=== PATIENT | female | born 1985 | race Caucasian/White ===

== ENCOUNTER → 2016-11-29 | Outpatient (CLI) | payer BC ==
--- NOTE | 2016-11-29 13:09 | REP ---
RIGHT HIP, TWO VIEWS: There is no evidence of an acute fracture, dislocation or intrinsic bone disease. There is minor subchondral sclerosis in the acetabulum. IMPRESSION: No fracture or dislocation. There is minor subchondral sclerosis in the acetabulum. Further evaluation may be made with MRI if clinically indicated. Signed by Edd Almaraz MD 11/29/2016 04:17 P
== END ==
LOC: M WUC 10:55
PROVIDERS: ATTEND Family Medicine
DX: M16.11 Unilateral primary osteoarthritis, right hip (principal)

== ENCOUNTER → 2016-12-27 | Outpatient (CLI) | payer BC ==
--- NOTE | 2016-12-27 12:06 | REP ---
LUMBOSACRAL SPINE: Five views of the lumbosacral spine are performed. There is no compression fracture or malalignment. There is normal lumbar lordosis. There is no spondylosis or spondylolisthesis. Disc spaces are well preserved. Posterior elements appear intact. There is mild curvature toward the right. IMPRESSION: Mild curvature toward the right without other significant abnormality. Signed by Edd Almaraz MD 12/27/2016 03:54 P
--- NOTE | 2016-12-27 12:42 | REP ---
Cervical spine seven views: There are no comparisons. Vertebral body heights, interspacing alignment are normal. The prevertebral soft tissues are normal. The facets are normally aligned. There is no listhesis on flexion or extension. There is no bony foraminal encroachment. The odontoid view is unremarkable. Impression: Negative plain film study of the cervical spine. Signed by Edd Beltran MD 12/27/2016 12:34 P
[2016-12-27 19:08] LABS: MEAN CORPUSCULAR HEMOGLOBIN 31.4 pg (27.0-33.0); MEAN CORPUSCULAR HGB CONC 32.1 g/dl (32.0-36.5); RED CELL DISTRIBUTION WIDTH 12.7 % (11.5-14.5); WHITE BLOOD COUNT 6.7 K/mm3 (4.0-10.0)
[2016-12-27 20:19] LABS: ALBUMIN 4.1 GM/DL (3.2-5.2); ALBUMIN/GLOBULIN RATIO 1.32 (1.00-1.93); ALKALINE PHOSPHATASE 78 U/L (45-117); ALT/SGPT 19 U/L (12-78); ANION GAP 5 MEQ/L (8-16); AST/SGOT 17 U/L (15-37); BILIRUBIN,TOTAL 0.4 MG/DL (0.2-1.0); BLOOD UREA NITROGEN 15 MG/DL (7-18); CALCIUM LEVEL 9.5 MG/DL (8.5-10.1); CARBON DIOXIDE LEVEL 28 MEQ/L (21-32); CHLORIDE LEVEL 108 MEQ/L (98-107); CREATININE FOR GFR 0.58 MG/DL (0.55-1.02); FERRITIN 44 NG/ML (8-252); GLOMERULAR FILTRATION RATE > 60.0 (>60); GLUCOSE, FASTING 110 MG/DL (70-105); PERCENT SATURATION 35.2 % (13.2-37.4); POTASSIUM SERUM 3.9 MEQ/L (3.5-5.1); SODIUM LEVEL 141 MEQ/L (136-145); TOTAL IRON BINDING CAPACITY 341 UG/DL (250-450); TOTAL PROTEIN 7.2 GM/DL (6.4-8.2)
[2016-12-27 20:24] LABS: VITAMIN B12 LEVEL 545 PG/ML (247-911)
== END ==
LOC: M WUC 11:02
PROVIDERS: ATTEND Family Medicine
DX: D64.9 Anemia, unspecified (principal); R53.83 Other fatigue; M53.87 Other specified dorsopathies, lumbosacral region

== ENCOUNTER 2017-04-10 07:28 | Emergency (ER) | payer OTHER, BC ==
[~2017-04-10] VITALS: Ht 172.7 cm; Wt 68.3 kg
[2017-04-10] MEDS ORDERED: DOXYCYCLINE HYCLATE 100 MG TAB PO ONE (07:45)
[2017-04-10] MEDS ORDERED: NS 1,000 ML IV ONE (07:45)
[2017-04-10] MEDS ORDERED: ONDANSETRON 4MG/2ML VIAL (J2405) IV ONE (07:45)
[2017-04-10] MEDS ORDERED: ONDA8TAB8 (07:46)
[2017-04-10] MEDS ORDERED: OXYC-517 (07:46)
[2017-04-10] MEDS ORDERED: PAXI30TA11 PO (07:46)
[2017-04-10] MEDS ORDERED: METH20TA29 (07:46)
[2017-04-10] MEDS ORDERED: PANT40TA2 (07:46)
[2017-04-10] MEDS ORDERED: DOXY100T (07:46)
[2017-04-10] MEDS ORDERED: LIDOCAINE W/EPINEPHRINE 1% 20ML VIAL As Ordered ONE (07:58)
[2017-04-10 08:00] LABS: BASO # 0.1 K/mm3 (0.0-0.2); EOS # 0.2 K/mm3 (0.0-0.50); EOS % 1.9 % (0.0-3.0); LARGE UNSTAINED CELL # 0.1 K/mm3 (0.0-0.4); LARGE UNSTAINED CELL % 1.7 % (0.0-4.0); LYMPH # 2.8 K/mm3 (1.5-4.5); LYMPH % 32.9 % (24.0-44.0); MEAN CORPUSCULAR HEMOGLOBIN 30.7 pg (27.0-33.0); MEAN CORPUSCULAR VOLUME 95.9 fl (80.0-96.0); MONO # 0.4 K/mm3 (0.0-0.8); MONO % 4.5 % (0.0-5.0); NEUTROPHILS # 4.8 K/mm3 (1.8-7.7); PLATELET COUNT, AUTOMATED 442 k/mm3 (150-450); RED CELL DISTRIBUTION WIDTH 14.7 % (11.5-14.5); WHITE BLOOD COUNT 8.2 K/mm3 (4.0-10.0)
[2017-04-10] MEDS: MORPHINE 2 MG/ML 1ML SYRINGE IV PRN ×3 (08:00→09:13)
[2017-04-10 08:24] LABS: ANION GAP 6 MEQ/L (8-16); BLOOD UREA NITROGEN 10 MG/DL (7-18); CALCIUM LEVEL 9.1 MG/DL (8.5-10.1); CARBON DIOXIDE LEVEL 29 MEQ/L (21-32); CHLORIDE LEVEL 106 MEQ/L (98-107); CREATININE FOR GFR 0.56 MG/DL (0.55-1.02); GLOMERULAR FILTRATION RATE > 60.0 (>60); GLUCOSE, FASTING 90 MG/DL (70-105); POTASSIUM SERUM 3.9 MEQ/L (3.5-5.1); SODIUM LEVEL 141 MEQ/L (136-145)
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
[2017-04-10] MEDS ORDERED: LIDOCAINE 1% MDV 20ML VIAL As Ordered ONE (09:09)
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
[2017-04-10] MEDS ORDERED: LIDOCAINE 1% MDV 20ML VIAL SC ONE (10:15)
[2017-04-10] MEDS ORDERED: LIDOCAINE W/EPINEPHRINE 1% 20ML VIAL SC ONE (10:15)
[2017-04-10 10:28] VITALS: BP 126/85
[2017-04-10] MEDS ORDERED: NORCOTAB PO (10:34)
[2017-04-10] MEDS ORDERED: PERCOCET 5MG/325MG TAB PO ONE (10:45)
--- NOTE | 2017-04-10 10:54 | REP ---
AP AND LATERAL RIGHT WRIST, TWO VIEWS: HISTORY: Postreduction. COMPARISON: 0:27 a.m. 04/10/2017 A plaster cast is present obscuring the bone detail. There is a comminuted intraarticular fracture of the distal radius. There is no dislocation. IMPRESSION: Fracture of the distal radius. There is anatomic alignment. Signed by Edi Oakes MD 04/10/2017 11:06 A
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
== END 2017-04-10 10:46 | disposition home or self-care (01) ==
LOC: EDBD 07:28 → M ED 07:28
DX: S52.571A Other intraarticular fracture of lower end of right radius, initial encounter for closed fracture (principal); S01.111A Laceration without foreign body of right eyelid and periocular area, initial encounter; V47.5XXA Car driver injured in collision with fixed or stationary object in traffic accident, initial encounter; Y92.410 Unspecified street and highway as the place of occurrence of the external cause; Y93.9 Activity, unspecified; Y99.8 Other external cause status; F41.9 Anxiety disorder, unspecified; F32.9 Major depressive disorder, single episode, unspecified; Z98.84 Bariatric surgery status; Z79.899 Other long term (current) drug therapy
CPT/HCPCS: 12011; 70450; 73090; 73100; 73110; 73130; 80048; 85025; 93041; 94760; 96361; 96374; 96375; 99285; J2405

== ENCOUNTER → 2017-10-25 | Outpatient (REF) | payer BC ==
[2017-10-25 09:55] LABS: HEMATOCRIT 32.6 % (36.0-47.0); HEMOGLOBIN 10.7 g/dl (12.0-16.0); MEAN CORPUSCULAR HGB CONC 32.8 g/dl (32.0-36.5); MEAN CORPUSCULAR VOLUME 94.5 fl (80.0-96.0); PLATELET COUNT, AUTOMATED 249 10^3/uL (150-450); RED BLOOD COUNT 3.45 10^6/uL (4.00-5.40); RED CELL DISTRIBUTION WIDTH 13.9 % (11.5-14.5); WHITE BLOOD COUNT 6.5 10^3/uL (4.0-10.0)
[2017-10-25 10:27] LABS: ALBUMIN 3.7 GM/DL (3.2-5.2); ALBUMIN/GLOBULIN RATIO 1.28 (1.00-1.93); ALKALINE PHOSPHATASE 87 U/L (45-117); ALT/SGPT 20 U/L (12-78); ANION GAP 7 MEQ/L (8-16); AST/SGOT 17 U/L (7-37); BILIRUBIN,TOTAL 0.1 MG/DL (0.2-1.0); BLOOD UREA NITROGEN 12 MG/DL (7-18); CALCIUM LEVEL 8.2 MG/DL (8.5-10.1); CARBON DIOXIDE LEVEL 27 MEQ/L (21-32); CHLORIDE LEVEL 108 MEQ/L (98-107); CHOLESTEROL LEVEL 135 MG/DL (<200); CHOLESTEROL RISK RATIO 4.218 (<5); CREATININE FOR GFR 0.51 MG/DL (0.55-1.30); GLOMERULAR FILTRATION RATE > 60.0 (>60); GLUCOSE, FASTING 77 MG/DL (70-100); HDL CHOLESTEROL 32 MG/DL (>40); IRON (FE) 38 UG/DL (50-170); LDL CHOLESTEROL 85.6 MG/DL (<100); NON-HDL-C 103 MG/DL; PERCENT SATURATION 12.3 % (13.2-45.0); POTASSIUM SERUM 3.7 MEQ/L (3.5-5.1); RHEUMATOID FACTOR QUANT < 10.0 IU/ML (0-15.0); SODIUM LEVEL 142 MEQ/L (136-145); THYROID STIMULATING HORMONE 0.955 uIU/ML (0.358-3.740); THYROXINE (T4) 8.2 UG/DL (4.5-12.0); TOTAL IRON BINDING CAPACITY 308 UG/DL (250-450); TOTAL PROTEIN 6.6 GM/DL (6.4-8.2); TRIGLYCERIDES LEVEL 87 MG/DL (<150)
[2017-10-25 10:39] LABS: TOTAL 25(OH) VITAMIN D 12.1 NG/ML (30.0-100.0)
[2017-10-25 10:40] LABS: TOTAL T3 112.3 NG/DL (60.0-181.0)
[2017-10-28 00:06] LABS: Lyme Disease IgG Ab 18 kDa Ban Present (.); Lyme Disease IgG Ab 23 kDa Ban Absent (.); Lyme Disease IgG Ab 28 kDa Ban Absent (.); Lyme Disease IgG Ab 30 kDa Ban Present (.); Lyme Disease IgG Ab 39 kDa Ban Present (.); Lyme Disease IgG Ab 41 kDa Ban Absent (.); Lyme Disease IgG Ab 45 kDa Ban Present (.); Lyme Disease IgG Ab 58 kDa Ban Present (.); Lyme Disease IgG Ab 66 kDa Ban Absent (.); Lyme Disease IgG Ab 93 kDa Ban Present (.); Lyme Disease IgG West Blot Int Positive (.); Lyme Disease IgG/IgM Antibodie 1.68 ISR (0.00-0.90); Lyme Disease IgM Ab 23 kDa Ban Present (.); Lyme Disease IgM Ab 39 kDa Ban Absent (.); Lyme Disease IgM Ab 41 kDa Ban Absent (.); Lyme Disease IgM Ab Quantitati 1.44 index (0.00-0.79); Lyme Disease IgM West Blot Int Negative (.)
== END ==
LOC: M LAB REF 09:37
DX: D64.9 Anemia, unspecified (principal); R53.83 Other fatigue; M10.9 Gout, unspecified

== ENCOUNTER → 2017-11-16 | Outpatient (REF) | payer BC ==
[2017-11-16 13:44] LABS: INFLUENZA A AMPLIFICATION NEGATIVE (NEGATIVE); INFLUENZA B AMPLIFICATION NEGATIVE (NEGATIVE)
== END ==
LOC: M LAB REF 12:57
DX: J11.1 Influenza due to unidentified influenza virus with other respiratory manifestations (principal)
CPT/HCPCS: 87502

== ENCOUNTER → 2018-04-05 | Outpatient (CLI) | payer BC | LOC: M WUC 11:45 | DX: S20.219A Contusion of unspecified front wall of thorax, initial encounter (principal); X58.XXXA Exposure to other specified factors, initial encounter; Y92.89 Other specified places as the place of occurrence of the external cause; Y93.9 Activity, unspecified; Y99.9 Unspecified external cause status | CPT/HCPCS: 71046 ==

== ENCOUNTER → 2018-12-16 | Outpatient (CLI) | payer BC ==
[~2018-12-16] MED LIST: DOXY100T; METH20TA29; NORCOTAB PO; ONDA8TAB8; OXYC-517; PANT40TA3; PAXI30TA11 PO
--- NOTE | 2018-12-17 08:58 | REP ---
RIGHT RIB SERIES: Four views of the right ribs are performed. A slightly displaced fracture is noted of the anterolateral right 6th rib. No other fracture or bone lesion is seen. An accompanying view of the chest demonstrates discoid atelectasis in the left lung base with mild elevation of the left hemidiaphragm. Heart and mediastinum are unremarkable. IMPRESSION: Mildly displaced fracture right 6th rib anterolaterally. Electronically Signed by Edd Almaraz MD 12/17/2018 10:35 A
== END ==
LOC: M WUC 12:04
PROVIDERS: ATTEND Physician Assistant
DX: S22.31XA Fracture of one rib, right side, initial encounter for closed fracture (principal); Y92.89 Other specified places as the place of occurrence of the external cause; Y93.89 Activity, other specified; X58.XXXA Exposure to other specified factors, initial encounter; Y99.8 Other external cause status

== ENCOUNTER → 2019-04-02 | Outpatient (CLI) | payer BC ==
[~2019-04-02] MED LIST changes: +HYDR-3715 PO; -NORCOTAB PO
[2019-04-02 17:45] LABS: BASO # 0.1 10^3/uL (0.0-0.2); BASO % 0.5 % (0.0-1.0); EOS # 0.1 10^3/uL (0.0-0.50); EOS % 0.7 % (0.0-3.0); HEMATOCRIT 33.6 % (36.0-47.0); HEMOGLOBIN 11.1 g/dl (12.0-15.5); LYMPH # 3.2 10^3/uL (1.5-4.5); LYMPH % 29.4 % (24.0-44.0); MEAN CORPUSCULAR HEMOGLOBIN 30.5 pg (27.0-33.0); MEAN CORPUSCULAR VOLUME 92.3 fl (80.0-96.0); MONO # 0.9 10^3/uL (0.0-0.8); MONO % 7.8 % (0.0-5.0); NEUTROPHILS # 6.7 10^3/uL (1.8-7.7); NEUTROPHILS % 61.4 % (36.0-66.0); PLATELET COUNT, AUTOMATED 274 10^3/uL (150-450); RED BLOOD COUNT 3.64 10^6/uL (4.00-5.40); WHITE BLOOD COUNT 10.8 10^3/uL (4.0-10.0)
[2019-04-02 18:48] LABS: APPEARANCE, URINE HAZY (CLEAR); BACTERIA, URINE AUTO NEGATIVE (NEGATIVE); BILIRUBIN, URINE AUTO NEGATIVE (NEGATIVE); BLOOD, URINE BLOOD NEGATIVE (NEGATIVE); CALCIUM OXALATE CRYSTALS SMALL; COLOR, URINE YELLOW (YELLOW); GLUCOSE, URINE (UA) AUTO NEGATIVE (NEGATIVE); KETONE, URINE AUTO TRACE mg/dL (NEGATIVE); LEUKOCYTE ESTERASE, URINE AUTO TRACE (NEGATIVE); MUCUS, URINE SMALL (NEGATIVE); NITRITE, URINE AUTO NEGATIVE (NEGATIVE); PROTEIN, URINE AUTO NEGATIVE (NEGATIVE); RBC, URINE AUTO 3 /HPF (0-3); SPECIFIC GRAVITY URINE AUTO 1.034 (1.002-1.035); SQUAMOUS EPITHELIAL CELL UR AU 1 /HPF (0-6); UROBILINOGEN, URINE AUTO 0.2 mg/dL (0.0-2.0); WBC, URINE AUTO 6 /HPF (0-3)
[2019-04-04 08:58] LABS: HEPATITIS B SURFACE ANTIGEN NEGATIVE (NEGATIVE); HIV 1&2 SCREEN CENTAUR NEGATIVE (NEGATIVE); RUBELLA IgG QUALITATIVE IMMUNE (IMMUNE)
== END ==
LOC: M WUC 15:06
PROVIDERS: ATTEND Nurse Practitioner Adult Health
DX: Z34.81 Encounter for supervision of other normal pregnancy, first trimester (principal); Z3A.00 Weeks of gestation of pregnancy not specified

== ENCOUNTER → 2019-06-07 | Outpatient (CLI) | payer BC | LOC: M LAB 12:15 | PROVIDERS: ATTEND Midwife | DX: Z34.82 Encounter for supervision of other normal pregnancy, second trimester (principal) ==

== ENCOUNTER → 2019-08-01 | Outpatient (CLI) | payer BC | LOC: M WUC 08:00 | PROVIDERS: ATTEND Midwife | DX: Z34.82 Encounter for supervision of other normal pregnancy, second trimester (principal) ==

== ENCOUNTER 2025-04-01 19:33 | Emergency (ER) | payer OTHER ==
[~2025-04-01] VITALS: Ht 172.7 cm; Wt 86.4 kg
[~2025-04-01 19:33] MED LIST changes: +ONDA-284; -ONDA8TAB8; +PANT40TA29; -PANT40TA3; -PAXI30TA11 PO; +PAXI30TA12 PO
[2025-04-01 21:54] LABS: BASO # 0.0 10^3/uL (0.0-0.2); BASO % 0.2 % (0.0-1.0); EOS # 0.0 10^3/uL (0.0-0.5); EOS % 0.2 % (0.0-3.0); LYMPH # 1.5 10^3/uL (1.5-5.0); LYMPH % 13.1 % (24.0-44.0); MONO # 1.6 10^3/uL (0.0-0.8); MONO % 14.4 % (2.0-8.0); NEUTROPHILS # 7.8 10^3/uL (1.5-8.5); NEUTROPHILS % 70.6 % (36.0-66.0); PLATELET COUNT, AUTOMATED 243 10^3/uL (150-450)
[2025-04-01 22:28] LABS: C REACTIVE PROTEIN QUANTITATIV 4.33 MG/DL (<1.0)
[2025-04-01 22:36] LABS: ALT/SGPT 89 U/L (7.0-40); AST/SGOT 252 U/L (<34); CALCIUM LEVEL 9.5 MG/DL (8.5-10.1); CARBON DIOXIDE LEVEL 22 MMOL/L (20-31); CHLORIDE LEVEL 104 MMOL/L (98-107); CREATININE FOR GFR 0.48 MG/DL (0.55-1.30); GLOMERULAR FILTRATION RATE > 90.0 (>58); POTASSIUM SERUM 3.8 MMOL/L (3.5-5.1); SODIUM LEVEL 142 MMOL/L (136-145)
[2025-04-02 00:19] LABS: ETHYL ALCOHOL (ETHANOL) < 0.003 % (0.000-0.010)
[2025-04-02] MEDS ORDERED: ISOVUE-370 76% 100 ML VIAL As Ordered ONE (01:05)
[2025-04-02] MEDS: ONDANSETRON 4MG 2ML VIAL IV ONE (01:09)
[2025-04-02] MEDS: MORPHINE 4 MG/ML 1 ML VIAL IV PRN (01:10)
[2025-04-02 01:43] LABS: INR 1.69
[2025-04-02] MEDS: OXYMETAZOLINE 0.05% NASAL SPRAY ONE (03:28)
[2025-04-02] MEDS: FUROSEMIDE 40 MG/4 ML VIAL IV ONE (03:28)
[2025-04-02] MEDS: DOCUSATE SODIUM 100 MG CAPSULE PO SCH (09:00)
[2025-04-02] MEDS ORDERED: MAALOX 30 ML SUSP *UDC PO PRN (10:40)
[2025-04-02] MEDS ORDERED: MOM 30 ML SUSPENSION UDC PO PRN (10:40)
[2025-04-02] MEDS: MORPHINE 2 MG/ML 1 ML VIAL IV PRN (10:55)
[2025-04-02] MEDS: FOLIC ACID 1 MG TAB PO SCH (11:15)
[2025-04-02] MEDS: MULTIVITAMINS/MINERALS THERAP 1 TAB PO SCH (11:15)
[2025-04-02] MEDS: THIAMINE 100 MG TAB PO SCH (11:15)
[2025-04-02] MEDS ORDERED: PANT-23 PO (12:34)
[2025-04-02] MEDS ORDERED: PRED15SO24 PO (12:34)
[2025-04-02] MEDS ORDERED: HOME MED LIST COMPLETE! XX SCH (12:35)
[2025-04-02] MEDS: PANTOPRAZOLE 40MG VIAL IV SCH (12:38)
[2025-04-02] MEDS: cefTRIAXone SOD 2 GM in DEXTROSE 5% (D5W) ADV/MINI-BAG 50 ML IV SCH (12:38)
[2025-04-02] MEDS: ENOXAPARIN 40 MG/0.4 ML SYRINGE (J1650 PER 10MG) SC SCH (13:00)
[2025-04-02 14:00] VITALS: BP 108/62
[2025-04-02] MEDS: FUROSEMIDE 20 MG/2 ML VIAL IV ONE (14:00)
[2025-04-02 14:21] VITALS: BP 111/59; TEMP 98.4; O2SAT 96
[2025-04-02] MEDS ORDERED: FUROSEMIDE 40 MG/4 ML VIAL IV SCH (17:00)
[2025-04-03 11:25] LABS: T P ELECTROPHORESIS SO 6.5 g/dL (6.1-8.1)
[2025-04-05 09:19] LABS: ALBUMIN SPEP 2.4 g/dL (3.8-4.8); ALPHA-1-GLOBULINS SO 0.4 g/dL (0.2-0.3); ALPHA-2-GLOBULINS SO 0.6 g/dL (0.5-0.9); BETA 2 GLOBULIN 0.7 g/dL (0.2-0.5); BETA-GLOBULIN SO 0.2 g/dL (0.4-0.6); GAMMA GLOBULINS SO 2.1 g/dL (0.8-1.7)
== END 2025-04-02 14:28 | disposition left against medical advice (07) ==
LOC: M ED 19:33
DX: K70.10 Alcoholic hepatitis without ascites (principal); K21.9 Gastro-esophageal reflux disease without esophagitis; F17.210 Nicotine dependence, cigarettes, uncomplicated; F10.10 Alcohol abuse, uncomplicated; Z79.52 Long term (current) use of systemic steroids; Z79.899 Other long term (current) drug therapy; Z53.9 Procedure and treatment not carried out, unspecified reason
CPT/HCPCS: 71045; 74177; 80048; 80076; 82077; 82140; 83605; 83690; 84145; 84155; 84165; 85025; 85610; 85730; 86140; 87040; 96365; 96372; 96375; 96376; 99284; J0696; J1650; J1938; J2405; J2470; Q9967

== ENCOUNTER 2025-04-09 16:08 | Emergency (ER) | payer OTHER ==
[~2025-04-09] VITALS: Ht 172.7 cm; Wt 90.3 kg
[~2025-04-09 16:08] MED LIST changes: +PANT-23 PO; +PRED15SO24 PO
[2025-04-09 17:40] LABS: BASO # 0.1 10^3/uL (0.0-0.2); BASO % 0.3 % (0.0-1.0); EOS # 0.1 10^3/uL (0.0-0.5); EOS % 0.4 % (0.0-3.0); LYMPH # 1.7 10^3/uL (1.5-5.0); LYMPH % 8.0 % (24.0-44.0); MONO # 1.5 10^3/uL (0.0-0.8); MONO % 7.1 % (2.0-8.0); NEUTROPHILS # 17.4 10^3/uL (1.5-8.5); NEUTROPHILS % 83.0 % (36.0-66.0); PLATELET COUNT, AUTOMATED 271 10^3/uL (150-450)
[2025-04-09] MEDS ORDERED: THERTAB52 PO (18:03)
[2025-04-09 18:04] LABS: ALT/SGPT 58.0 U/L (7.0-40); AST/SGOT 173.0 U/L (<34); CALCIUM LEVEL 8.8 MG/DL (8.5-10.1); CARBON DIOXIDE LEVEL 22.0 MMOL/L (20-31); CHLORIDE LEVEL 95.0 MMOL/L (98-107); CREATININE FOR GFR 1.82 MG/DL (0.55-1.30); GLOMERULAR FILTRATION RATE 35.4 (>58); POTASSIUM SERUM 2.9 MMOL/L (3.5-5.1); SODIUM LEVEL 131.0 MMOL/L (136-145)
[2025-04-09] MEDS ORDERED: HOME MED LIST COMPLETE! XX SCH (18:05)
[2025-04-09 18:06] LABS: INR 2.04
[2025-04-09] MEDS: NS (Normal Saline) 0.9% 1,000 ML IV SCH (18:17)
[2025-04-09] MEDS: KCL 10MEQ/100ML SWI (KRUN) 10 MEQ in IV 1 EA IV ONE (18:17)
[2025-04-09] MEDS: cefTRIAXone SOD 1 GM in DEXTROSE 5% (D5W) ADV/MINI-BAG 50 ML IV ONE (18:27)
[2025-04-09] MEDS: POTASSIUM CHLORIDE 10MEQ SR TABLET PO ONE (21:49)
[2025-04-09] MEDS: PANTOPRAZOLE 40MG VIAL IV ONE (23:55)
[2025-04-09] MEDS: PHYTONADIONE 5 MG TAB PO ONE (23:56)
[2025-04-10] VITALS (8 sets, daily range): BP systolic 94–163; BP diastolic 53–70; TEMP 97.7–98.6; O2SAT 93–97
[2025-04-10 07:25] LABS: BASO # 0.1 10^3/uL (0.0-0.2); BASO % 0.4 % (0.0-1.0); EOS # 0.1 10^3/uL (0.0-0.5); EOS % 0.3 % (0.0-3.0); LYMPH # 1.3 10^3/uL (1.5-5.0); LYMPH % 7.4 % (24.0-44.0); MONO # 1.1 10^3/uL (0.0-0.8); MONO % 6.6 % (2.0-8.0); NEUTROPHILS # 14.4 10^3/uL (1.5-8.5); NEUTROPHILS % 84.4 % (36.0-66.0); PLATELET COUNT, AUTOMATED 248 10^3/uL (150-450)
[2025-04-10 07:59] LABS: CALCIUM LEVEL 8.5 MG/DL (8.5-10.1); CARBON DIOXIDE LEVEL 22.0 MMOL/L (20-31); CHLORIDE LEVEL 99.0 MMOL/L (98-107); CREATININE FOR GFR 1.84 MG/DL (0.55-1.30); GLOMERULAR FILTRATION RATE 34.9 (>58); POTASSIUM SERUM 3.5 MMOL/L (3.5-5.1); SODIUM LEVEL 134.0 MMOL/L (136-145)
[2025-04-10 08:03] LABS: ALT/SGPT 51.0 U/L (7.0-40); AST/SGOT 161.0 U/L (<34); CALCIUM LEVEL 8.7 MG/DL (8.5-10.1); CARBON DIOXIDE LEVEL 22.0 MMOL/L (20-31); CHLORIDE LEVEL 99.0 MMOL/L (98-107); CREATININE FOR GFR 1.86 MG/DL (0.55-1.30); GLOMERULAR FILTRATION RATE 34.5 (>58); POTASSIUM SERUM 3.5 MMOL/L (3.5-5.1); SODIUM LEVEL 134.0 MMOL/L (136-145)
[2025-04-10] MEDS: PANTOPRAZOLE 40MG VIAL IV SCH (08:13)
[2025-04-10] MEDS ORDERED: OCTREOTIDE ACETATE 100 MCG/ML VIAL **SC ADMINISTRATION ONLY SC SCH ×2 (12:10→14:00)
[2025-04-10] MEDS ORDERED: HYDROMORPHONE HCL 0.5 MG/0.5 ML SYRINGE IV PRN (12:50)
[2025-04-10] MEDS: ONDANSETRON 4MG 2ML VIAL IV PRN (13:05)
[2025-04-10] MEDS: HYDROMORPHONE HCL 0.5 MG/0.5 ML SYRINGE IV PRN (13:05)
[2025-04-10] MEDS: DOXYCYCLINE HYCLATE 100 MG TABLET PO SCH (13:12)
[2025-04-10] MEDS: MIDODRINE 5 MG TAB PO SCH (13:12)
[2025-04-10] MEDS ORDERED: cefTRIAXone SOD 1 GM in DEXTROSE 5% (D5W) ADV/MINI-BAG 50 ML IV SCH (18:00)
== END 2025-04-10 13:17 | disposition short-term general hospital (02) ==
LOC: M ED 16:08
DX: K72.90 Hepatic failure, unspecified without coma (principal); K70.10 Alcoholic hepatitis without ascites; F41.9 Anxiety disorder, unspecified; F32.A Depression, unspecified; F17.210 Nicotine dependence, cigarettes, uncomplicated; Z79.899 Other long term (current) drug therapy; Z79.810 Long term (current) use of selective estrogen receptor modulators (SERMs)
CPT/HCPCS: 36415; 36430; 74176; 80048; 80053; 80076; 83690; 85025; 85610; 85730; 86850; 86900; 86901; 87040; 93005; 93041; 96365; 96366; 96375; 99285; J0696; J1171; J2405; J2470; J3010; P9047

== ENCOUNTER → 2025-05-13 | Outpatient (CLI) | payer OTHER ==
[~2025-05-13] MED LIST changes: +THERTAB52 PO
[2025-05-13 12:23] LABS: BASO # 0.1 10^3/uL (0.0-0.2); BASO % 1.0 % (0.0-1.0); EOS # 0.3 10^3/uL (0.0-0.5); EOS % 2.3 % (0.0-3.0); LYMPH # 2.8 10^3/uL (1.5-5.0); LYMPH % 24.7 % (24.0-44.0); MONO # 0.7 10^3/uL (0.0-0.8); MONO % 5.9 % (2.0-8.0); NEUTROPHILS # 7.4 10^3/uL (1.5-8.5); NEUTROPHILS % 65.7 % (36.0-66.0); PLATELET COUNT, AUTOMATED 433 10^3/uL (150-450)
[2025-05-13 12:26] LABS: ALT/SGPT 14.0 U/L (7.0-40); AST/SGOT 13.0 U/L (<34); CALCIUM LEVEL 9.2 MG/DL (8.5-10.1); CARBON DIOXIDE LEVEL 24.0 MMOL/L (20-31); CHLORIDE LEVEL 110.0 MMOL/L (98-107); CREATININE FOR GFR 1.55 MG/DL (0.55-1.30); GLOMERULAR FILTRATION RATE 42.9 (>58); MAGNESIUM LEVEL 1.3 MG/DL (1.8-2.4); POTASSIUM SERUM 3.8 MMOL/L (3.5-5.1); SODIUM LEVEL 146.0 MMOL/L (136-145)
== END ==
LOC: M WUC 08:20
PROVIDERS: ATTEND Nurse Practitioner Adult Health
DX: Z01.82 Encounter for allergy testing (principal); K74.60 Unspecified cirrhosis of liver; Z94.4 Liver transplant status; R79.89 Other specified abnormal findings of blood chemistry; B18.1 Chronic viral hepatitis B without delta-agent; B18.2 Chronic viral hepatitis C

== ENCOUNTER → 2025-05-20 | Outpatient (CLI) | payer OTHER ==
[~2025-05-20] MED LIST changes: +ACYC1CAP20 PO; +B-12100021 PO; +BACT800T5 PO; +CELL500T PO; +COLA100C5 PO; +FOLI1TAB11 PO; +LASI40TA9 PO; +MAGN400C2 PO; +NOXI1TAB PO; +NYST-38 PO; +PRED10TA2 PO; +PROT1TAB2 PO; +PROZ20CA12 PO; +TACR5CAP4 PO; +THIA100TA PO; +URSO300C3 PO
[2025-05-20 12:09] LABS: BASO # 0.1 10^3/uL (0.0-0.2); BASO % 0.6 % (0.0-1.0); EOS # 0.2 10^3/uL (0.0-0.5); EOS % 1.7 % (0.0-3.0); LYMPH # 1.5 10^3/uL (1.5-5.0); LYMPH % 11.4 % (24.0-44.0); MONO # 0.6 10^3/uL (0.0-0.8); MONO % 4.4 % (2.0-8.0); NEUTROPHILS # 10.4 10^3/uL (1.5-8.5); NEUTROPHILS % 81.0 % (36.0-66.0); PLATELET COUNT, AUTOMATED 480 10^3/uL (150-450)
[2025-05-20 12:58] LABS: ALT/SGPT 17.0 U/L (7.0-40); AST/SGOT 18.0 U/L (<34); CALCIUM LEVEL 9.9 MG/DL (8.5-10.1); CARBON DIOXIDE LEVEL 23.0 MMOL/L (20-31); CHLORIDE LEVEL 109.0 MMOL/L (98-107); CREATININE FOR GFR 1.46 MG/DL (0.55-1.30); GLOMERULAR FILTRATION RATE 46.1 (>58); MAGNESIUM LEVEL 1.3 MG/DL (1.8-2.4); POTASSIUM SERUM 4.7 MMOL/L (3.5-5.1); SODIUM LEVEL 143.0 MMOL/L (136-145)
[2025-05-23 16:13] LABS: FK 506 (TACROLIMUS) 3.9 mcg/L (5.0-20.0)
[2025-05-24 11:17] LABS: PHOSPHATIDYLETHANOL NEGATIVE ng/mL (<20); PLPETOH NEGATIVE ng/mL (<20)
== END ==
LOC: M WUC 08:20
PROVIDERS: ATTEND Nurse Practitioner Adult Health
DX: Z01.82 Encounter for allergy testing (principal); K74.60 Unspecified cirrhosis of liver; Z94.4 Liver transplant status

== ENCOUNTER 2025-05-24 12:13 | Emergency (ER) | payer OTHER ==
[~2025-05-24] VITALS: Ht 172.7 cm; Wt 70.8 kg
[~2025-05-24 12:13] MED LIST changes: -ACYC1CAP20 PO; -B-12100021 PO; -BACT800T5 PO; -CELL500T PO; -COLA100C5 PO; -FOLI1TAB11 PO; -LASI40TA9 PO; -MAGN400C2 PO; -NOXI1TAB PO; -NYST-38 PO; -PRED10TA2 PO; -PROT1TAB2 PO; -PROZ20CA12 PO; -TACR5CAP4 PO; -THIA100TA PO; -URSO300C3 PO
[2025-05-24] MEDS ORDERED: NYST-38 PO (12:29)
[2025-05-24] MEDS ORDERED: PROZ20CA12 PO (12:29)
[2025-05-24] MEDS ORDERED: BACT800T5 PO (12:29)
[2025-05-24] MEDS ORDERED: NOXI1TAB PO (12:29)
[2025-05-24] MEDS ORDERED: CELL500T PO (12:29)
[2025-05-24] MEDS ORDERED: MAGN400C2 PO (12:29)
[2025-05-24] MEDS ORDERED: ACYC1CAP20 PO (12:29)
[2025-05-24] MEDS ORDERED: B-12100021 PO (12:29)
[2025-05-24] MEDS ORDERED: PRED10TA2 PO (12:29)
[2025-05-24] MEDS ORDERED: FOLI1TAB11 PO (12:29)
[2025-05-24] MEDS ORDERED: TACR5CAP4 PO (12:29)
[2025-05-24] MEDS ORDERED: LASI40TA9 PO (12:29)
[2025-05-24] MEDS ORDERED: THIA100TA PO (12:29)
[2025-05-24] MEDS ORDERED: URSO300C3 PO (12:29)
[2025-05-24] MEDS ORDERED: PROT1TAB2 PO (12:29)
[2025-05-24] MEDS ORDERED: COLA100C5 PO (12:29)
[2025-05-24 13:05] LABS: BASO # 0.1 10^3/uL (0.0-0.2); BASO % 0.6 % (0.0-1.0); EOS # 0.0 10^3/uL (0.0-0.5); EOS % 0.2 % (0.0-3.0); LYMPH # 1.0 10^3/uL (1.5-5.0); LYMPH % 10.0 % (24.0-44.0); MONO # 0.3 10^3/uL (0.0-0.8); MONO % 2.4 % (2.0-8.0); NEUTROPHILS # 8.9 10^3/uL (1.5-8.5); NEUTROPHILS % 85.9 % (36.0-66.0); PLATELET COUNT, AUTOMATED 397 10^3/uL (150-450)
[2025-05-24 13:34] LABS: ALT/SGPT 15.0 U/L (7.0-40); AST/SGOT 17.0 U/L (<34); CALCIUM LEVEL 9.4 MG/DL (8.5-10.1); CARBON DIOXIDE LEVEL 21.0 MMOL/L (20-31); CHLORIDE LEVEL 106.0 MMOL/L (98-107); CREATININE FOR GFR 1.45 MG/DL (0.55-1.30); GLOMERULAR FILTRATION RATE 46.5 (>58); POTASSIUM SERUM 4.7 MMOL/L (3.5-5.1); SODIUM LEVEL 139.0 MMOL/L (136-145)
[2025-05-24] MEDS: ONDANSETRON 4MG 2ML VIAL IV ONE (14:15)
[2025-05-24] MEDS: MORPHINE 4 MG/ML 1 ML VIAL IV PRN (14:34)
[2025-05-24] MEDS ORDERED: ISOVUE-370 76% 100 ML VIAL As Ordered ONE (14:40)
[2025-05-24 16:33] LABS: INR 0.85
[2025-05-24 17:15] VITALS: TEMP 97.6
[2025-05-24 17:30] VITALS: BP 145/98; O2SAT 100
== END 2025-05-24 17:47 | disposition home or self-care (01) ==
LOC: M ED 12:13
DX: R10.11 Right upper quadrant pain (principal); Z94.4 Liver transplant status; Z98.84 Bariatric surgery status; Z88.6 Allergy status to analgesic agent; Z90.49 Acquired absence of other specified parts of digestive tract; N83.202 Unspecified ovarian cyst, left side; K76.0 Fatty (change of) liver, not elsewhere classified; Z79.899 Other long term (current) drug therapy
CPT/HCPCS: 74177; 80048; 80076; 80197; 82150; 83690; 85025; 85610; 96374; 99284; Q9967

== ENCOUNTER → 2025-06-03 | Outpatient (CLI) | payer OTHER ==
[~2025-06-03] MED LIST changes: +ACYC1CAP20 PO; +B-12100021 PO; +BACT800T5 PO; +CELL500T PO; +COLA100C5 PO; +FOLI1TAB11 PO; +LASI40TA9 PO; +MAGN400C2 PO; +NOXI1TAB PO; +NYST-38 PO; +PRED10TA2 PO; +PROT1TAB2 PO; +PROZ20CA12 PO; +TACR5CAP4 PO; +THIA100TA PO; +URSO300C3 PO
[2025-06-03 12:59] LABS: BASO # 0.1 10^3/uL (0.0-0.2); BASO % 0.7 % (0.0-1.0); EOS # 0.1 10^3/uL (0.0-0.5); EOS % 0.7 % (0.0-3.0); LYMPH # 1.4 10^3/uL (1.5-5.0); LYMPH % 11.1 % (24.0-44.0); MONO # 0.5 10^3/uL (0.0-0.8); MONO % 4.2 % (2.0-8.0); NEUTROPHILS # 10.4 10^3/uL (1.5-8.5); NEUTROPHILS % 82.5 % (36.0-66.0); PLATELET COUNT, AUTOMATED 357 10^3/uL (150-450)
[2025-06-03 13:04] LABS: ALT/SGPT 15.0 U/L (7.0-40); AST/SGOT 22.0 U/L (<34); CALCIUM LEVEL 9.9 MG/DL (8.5-10.1); CARBON DIOXIDE LEVEL 22.0 MMOL/L (20-31); CHLORIDE LEVEL 106.0 MMOL/L (98-107); CREATININE FOR GFR 1.44 MG/DL (0.55-1.30); GLOMERULAR FILTRATION RATE 46.9 (>58); MAGNESIUM LEVEL 1.4 MG/DL (1.8-2.4); POTASSIUM SERUM 3.9 MMOL/L (3.5-5.1); SODIUM LEVEL 140.0 MMOL/L (136-145)
[2025-06-06 08:48] LABS: FK 506 (TACROLIMUS) 16.3 mcg/L (5.0-20.0)
[2025-06-07 22:13] LABS: PHOSPHATIDYLETHANOL NEGATIVE ng/mL (<20); PLPETOH NEGATIVE ng/mL (<20)
== END ==
LOC: M WUC 09:45
PROVIDERS: ATTEND Nurse Practitioner Adult Health
DX: Z18.12 Retained nonmagnetic metal fragments (principal)

== ENCOUNTER → 2025-06-21 | Outpatient (CLI) | payer OTHER | LOC: M WUC 08:37 | PROVIDERS: ATTEND Nurse Practitioner Adult Health | DX: Z94.4 Liver transplant status (principal) ==

== ENCOUNTER → 2025-07-02 | Outpatient (CLI) | payer OTHER ==
[2025-07-02 12:57] LABS: BASO # 0.1 10^3/uL (0.0-0.2); BASO % 0.5 % (0.0-1.0); EOS # 0.1 10^3/uL (0.0-0.5); EOS % 0.9 % (0.0-3.0); LYMPH # 1.8 10^3/uL (1.5-5.0); LYMPH % 17.8 % (24.0-44.0); MONO # 0.7 10^3/uL (0.0-0.8); MONO % 6.9 % (2.0-8.0); NEUTROPHILS # 7.4 10^3/uL (1.5-8.5); NEUTROPHILS % 73.5 % (36.0-66.0); PLATELET COUNT, AUTOMATED 308 10^3/uL (150-450)
[2025-07-02 15:14] LABS: ALT/SGPT 15.0 U/L (7.0-40); AST/SGOT 18.0 U/L (<34); CALCIUM LEVEL 9.7 MG/DL (8.5-10.1); CARBON DIOXIDE LEVEL 20.0 MMOL/L (20-31); CHLORIDE LEVEL 110.0 MMOL/L (98-107); CREATININE FOR GFR 1.29 MG/DL (0.55-1.30); GLOMERULAR FILTRATION RATE 53.1 (>58); MAGNESIUM LEVEL 1.5 MG/DL (1.8-2.4); POTASSIUM SERUM 4.3 MMOL/L (3.5-5.1); SODIUM LEVEL 139.0 MMOL/L (136-145)
[2025-07-04 12:02] LABS: FK 506 (TACROLIMUS) 5.7 mcg/L (5.0-20.0)
== END ==
LOC: M WUC 08:54
PROVIDERS: ATTEND Nurse Practitioner Adult Health
DX: Z01.82 Encounter for allergy testing (principal); Z94.4 Liver transplant status; B18.1 Chronic viral hepatitis B without delta-agent; B18.2 Chronic viral hepatitis C; R79.89 Other specified abnormal findings of blood chemistry

== ENCOUNTER 2025-07-18 16:00 | Emergency (ER) | payer OTHER ==
[~2025-07-18] VITALS: Ht 172.7 cm; Wt 74.8 kg
[2025-07-18 16:53] LABS: BASO # 0.0 10^3/uL (0.0-0.2); BASO % 0.5 % (0.0-1.0); EOS # 0.1 10^3/uL (0.0-0.5); EOS % 1.0 % (0.0-3.0); LYMPH # 1.2 10^3/uL (1.5-5.0); LYMPH % 15.6 % (24.0-44.0); MONO # 0.5 10^3/uL (0.0-0.8); MONO % 6.0 % (2.0-8.0); NEUTROPHILS # 5.9 10^3/uL (1.5-8.5); NEUTROPHILS % 76.8 % (36.0-66.0); PLATELET COUNT, AUTOMATED 316 10^3/uL (150-450)
[2025-07-18 17:22] LABS: ALT/SGPT 29.0 U/L (7.0-40); AST/SGOT 35.0 U/L (<34); CALCIUM LEVEL 10.4 MG/DL (8.5-10.1); CARBON DIOXIDE LEVEL 25.0 MMOL/L (20-31); CHLORIDE LEVEL 102.0 MMOL/L (98-107); CREATININE FOR GFR 2.28 MG/DL (0.55-1.30); GLOMERULAR FILTRATION RATE 26.8 (>58); POTASSIUM SERUM 4.0 MMOL/L (3.5-5.1); SODIUM LEVEL 136.0 MMOL/L (136-145)
[2025-07-18] MEDS ORDERED: NS (Normal Saline) 0.9% 1,000 ML IV SCH (18:00)
[2025-07-18] MEDS: MORPHINE 4 MG/ML 1 ML VIAL IV ONE ×2 (18:16→20:42)
[2025-07-18] MEDS: NS 500 ML IV ONE (18:17)
[2025-07-18 18:19] LABS: INR 0.9
[2025-07-18 18:30] VITALS: TEMP 97.2
[2025-07-18 18:37] LABS: CK-MB VALUE MASS 2.7 NG/ML (<3.6)
[2025-07-18 18:40] LABS: C REACTIVE PROTEIN QUANTITATIV 0.68 MG/DL (<1.0); CPK CREATINE PHOSPHOKINASE 100.0 U/L (34-145); MB/CK RELATIVE INDEX 2.7 (< OR =4)
[2025-07-18 18:48] LABS: ALT/SGPT 25.0 U/L (7.0-40); AST/SGOT 29.0 U/L (<34); CALCIUM LEVEL 10.2 MG/DL (8.5-10.1); CARBON DIOXIDE LEVEL 24.0 MMOL/L (20-31); CHLORIDE LEVEL 106.0 MMOL/L (98-107); CREATININE FOR GFR 2.33 MG/DL (0.55-1.30); GLOMERULAR FILTRATION RATE 26.1 (>58); POTASSIUM SERUM 4.0 MMOL/L (3.5-5.1); SODIUM LEVEL 137.0 MMOL/L (136-145)
[2025-07-18 19:45] VITALS: BP 142/96; O2SAT 100
[2025-07-18 20:08] LABS: CK-MB VALUE MASS 2.4 NG/ML (<3.6)
[2025-07-18 20:11] LABS: CPK CREATINE PHOSPHOKINASE 97.0 U/L (34-145); MB/CK RELATIVE INDEX 2.47 (< OR =4)
[2025-07-18] MEDS: TACROLIMUS 1MG CAP PO SCH (20:58)
[2025-07-20 07:45] LABS: ERYTHROCYTE SEDIMENTATION RATE 53 mm/hr (0-20)
== END 2025-07-18 22:41 | disposition left against medical advice (07) ==
LOC: M ED 16:00
DX: N17.9 Acute kidney failure, unspecified (principal); I45.10 Unspecified right bundle-branch block; F17.210 Nicotine dependence, cigarettes, uncomplicated; Z88.6 Allergy status to analgesic agent; Z79.2 Long term (current) use of antibiotics; Z79.52 Long term (current) use of systemic steroids; Z79.899 Other long term (current) drug therapy; Z79.810 Long term (current) use of selective estrogen receptor modulators (SERMs); Z53.9 Procedure and treatment not carried out, unspecified reason
CPT/HCPCS: 71045; 74176; 76775; 80048; 80076; 80197; 82150; 82550; 82553; 83605; 83690; 84145; 84484; 85025; 85610; 85652; 85730; 86140; 86850; 86900; 86901; 87040; 93005; 93041; 94760; 96361; 96374; 96375; 99285; J7507

== ENCOUNTER → 2025-08-12 | Outpatient (CLI) | payer OTHER ==
[2025-08-12 14:15] LABS: BASO # 0.1 10^3/uL (0.0-0.2); BASO % 0.6 % (0.0-1.0); EOS # 0.1 10^3/uL (0.0-0.5); EOS % 1.7 % (0.0-3.0); LYMPH # 1.5 10^3/uL (1.5-5.0); LYMPH % 19.5 % (24.0-44.0); MONO # 0.6 10^3/uL (0.0-0.8); MONO % 7.3 % (2.0-8.0); NEUTROPHILS # 5.5 10^3/uL (1.5-8.5); NEUTROPHILS % 70.5 % (36.0-66.0); PLATELET COUNT, AUTOMATED 218 10^3/uL (150-450)
[2025-08-12 14:23] LABS: ALT/SGPT 19.0 U/L (7.0-40); AST/SGOT 22.0 U/L (<34); CALCIUM LEVEL 10.0 MG/DL (8.5-10.1); CARBON DIOXIDE LEVEL 25.0 MMOL/L (20-31); CHLORIDE LEVEL 112.0 MMOL/L (98-107); CREATININE FOR GFR 1.76 MG/DL (0.55-1.30); GLOMERULAR FILTRATION RATE 36.6 (>58); MAGNESIUM LEVEL 1.6 MG/DL (1.8-2.4); POTASSIUM SERUM 4.7 MMOL/L (3.5-5.1); SODIUM LEVEL 141.0 MMOL/L (136-145)
[2025-08-14 12:37] LABS: FK 506 (TACROLIMUS) 10.0 mcg/L (5.0-20.0)
== END ==
LOC: M WUC 08:39
PROVIDERS: ATTEND Nurse Practitioner Adult Health
DX: Z01.82 Encounter for allergy testing (principal)

== ENCOUNTER → 2025-08-19 | Outpatient (CLI) | payer OTHER ==
[~2025-08-19] MED LIST changes: -PROZ20CA12 PO; +PROZ20CA25 PO
[2025-08-19 13:00] LABS: BASO # 0.0 10^3/uL (0.0-0.2); BASO % 0.5 % (0.0-1.0); EOS # 0.1 10^3/uL (0.0-0.5); EOS % 1.6 % (0.0-3.0); LYMPH # 1.6 10^3/uL (1.5-5.0); LYMPH % 20.3 % (24.0-44.0); MONO # 0.6 10^3/uL (0.0-0.8); MONO % 7.6 % (2.0-8.0); NEUTROPHILS # 5.5 10^3/uL (1.5-8.5); NEUTROPHILS % 69.7 % (36.0-66.0); PLATELET COUNT, AUTOMATED 247 10^3/uL (150-450)
[2025-08-19 13:26] LABS: ALT/SGPT 19.0 U/L (7.0-40); AST/SGOT 19.0 U/L (<34); CALCIUM LEVEL 10.0 MG/DL (8.5-10.1); CARBON DIOXIDE LEVEL 24.0 MMOL/L (20-31); CHLORIDE LEVEL 113.0 MMOL/L (98-107); CREATININE FOR GFR 1.85 MG/DL (0.55-1.30); GLOMERULAR FILTRATION RATE 34.5 (>58); MAGNESIUM LEVEL 2.0 MG/DL (1.8-2.4); POTASSIUM SERUM 4.5 MMOL/L (3.5-5.1); SODIUM LEVEL 144.0 MMOL/L (136-145)
== END ==
LOC: M WUC 08:35
PROVIDERS: ATTEND Nurse Practitioner Adult Health
DX: K74.60 Unspecified cirrhosis of liver (principal)

== ENCOUNTER → 2025-09-23 | Outpatient (CLI) | payer OTHER ==
[2025-09-23 12:25] LABS: BASO # 0.1 10^3/uL (0.0-0.2); BASO % 0.6 % (0.0-1.0); EOS # 0.1 10^3/uL (0.0-0.5); EOS % 0.6 % (0.0-3.0); LYMPH # 1.6 10^3/uL (1.5-5.0); LYMPH % 16.4 % (24.0-44.0); MONO # 0.5 10^3/uL (0.0-0.8); MONO % 5.3 % (2.0-8.0); NEUTROPHILS # 7.2 10^3/uL (1.5-8.5); NEUTROPHILS % 76.7 % (36.0-66.0); PLATELET COUNT, AUTOMATED 301 10^3/uL (150-450)
[2025-09-23 12:58] LABS: ALT/SGPT 24.0 U/L (7.0-40); AST/SGOT 27.0 U/L (<34); CALCIUM LEVEL 10.3 MG/DL (8.5-10.1); CARBON DIOXIDE LEVEL 22.0 MMOL/L (20-31); CHLORIDE LEVEL 111.0 MMOL/L (98-107); CREATININE FOR GFR 1.31 MG/DL (0.55-1.30); GLOMERULAR FILTRATION RATE 52.2 (>58); MAGNESIUM LEVEL 1.7 MG/DL (1.8-2.4); POTASSIUM SERUM 5.1 MMOL/L (3.5-5.1); SODIUM LEVEL 138.0 MMOL/L (136-145)
[2025-09-25 15:12] LABS: FK 506 (TACROLIMUS) 6.8 mcg/L (5.0-20.0)
[2025-09-25 20:23] LABS: CMV QUANT DNA PCR (PLASMA) Not Detected; log10 CMV QN DNA P1 Not Detected log IU/mL
== END ==
LOC: M WUC 09:39
PROVIDERS: ATTEND Nurse Practitioner Adult Health
DX: Z01.82 Encounter for allergy testing (principal); R79.89 Other specified abnormal findings of blood chemistry; K74.60 Unspecified cirrhosis of liver; Z94.4 Liver transplant status; K75.4 Autoimmune hepatitis; B19.10 Unspecified viral hepatitis B without hepatic coma; B19.20 Unspecified viral hepatitis C without hepatic coma